=== PATIENT | male | born 1960 | race Caucasian/White ===

== ENCOUNTER 2016-06-09 20:09 | Emergency (ER) | payer MEDICAID, OTHER ==
[~2016-06-09] VITALS: Ht 175.3 cm; Wt 81.0 kg
[2016-06-09 20:17] VITALS: Ht 175.3 cm; Wt 81.0 kg
[2016-06-09 23:52] LABS: ADD UMIC YES; URINE BILIRUBIN (Dip) NEGATIVE (NEGATIVE); URINE BLOOD (Dip) 2+ (NEGATIVE); URINE COLOR LT. YELLOW (YELLOW); URINE GLUCOSE (Dip) >=1000 % (NEGATIVE); URINE KETONES (Dip) 3+ (NEGATIVE); URINE LEUKOCYTE ESTERASE (Dip) 1+ (NEGATIVE); URINE NITRITE (Dip) POSITIVE (NEGATIVE); URINE TOTAL PROTEIN (Dip) 1+ (NEGATIVE); URINE UROBILINOGEN (Dip) 0.2 E.U./dL (0.1-1.0)
--- NOTE | 2016-06-09 23:56 | RADRPT ---
PROCEDURE: Scrotal ultrasound CLINICAL INDICATION: Scrotal pain. TECHNIQUE: Scrotal ultrasound was performed with sagittal and transverse views. Calvo scale and co aditya imaging was performed. Images were reviewed on high resolution PACS monitors. COMPARISON: None available FINDINGS: The right testicle measures 4.1 x 2.1 x 2.8 cm . There is normal size and echogenicity and morpholog y of the right testicle with normal blood flow. The right epididymis is normal. No hydrocele is seen . There is no evidence for a varicocele.. The left testicle measures 4.2 x 2 x 2.7 cm. There is normal size and echogenicity and morphology of the left testicle with normal blood flow. The left epididymis is normal. No hydrocele is seen. Th ere is no evidence for a varicocele.. IMPRESSION: 1. Unremarkable scrotal ultrasound. RPTAT: HMVK .Fabrice Burrows MD, Date Time Electronically viewed and signed by .Fabrice Burrows MD, MD on 06/09/2016 23:56 .K/
[2016-06-10 00:03] LABS: BACTERIA,URINE MANY; SQUAMOUS EPITHELIAL CELL,UR OCCASIONAL; URINE RBCS >50 /HPF (0)
[2016-06-10] MEDS ORDERED: SOD CHLORIDE 0.9% 1,000 ML IV STA (00:53)
[2016-06-10 01:39] LABS: ALBUMIN 3.9 g/dl (3.3-4.9)
[2016-06-10 01:40] LABS: POTASSIUM 3.9 mmol/L (3.5-5.1)
[2016-06-10 01:42] LABS: ALBUMIN/GLOBULIN RATIO 1.11; CREATININE 0.62 mg/dl (0.61-1.24); TOTAL PROTEIN 7.4 g/dl (6.1-8.1)
[2016-06-10 01:43] LABS: CALCIUM 8.6 mg/dl (8.4-10.2)
[2016-06-10 02:09] LABS: BASOPHILS % 0.3 % (0.0-2.0); EOSINOPHILS % 0.1 % (0.0-7.0); HEMATOCRIT 40.4 % (42.0-52.0); HEMOGLOBIN 13.9 g/dl (14.0-18.0); LYMPHOCYTES # 1.2 10^3/ul (0.8-2.9); LYMPHOCYTES % 11.9 % (15.0-51.0); MEAN CORPUSCULAR HEMOGLOBIN 30.5 pg (29.0-33.0); MEAN CORPUSCULAR HGB CONC 34.4 g/dl (32.0-37.0); MEAN CORPUSCULAR VOLUME 88.6 fl (82.0-101.0); MEAN PLATELET VOLUME 7.5 fl (7.4-10.4); MONOCYTE # 0.7 10^3/ul (0.3-0.9); MONOCYTES % 6.5 % (0.0-11.0); NEUTROPHIL # 8.4 10^3/ul (1.6-7.5); NEUTROPHILS % 81.2 % (39.0-77.0); PLATELET COUNT 246 10^3/UL (140-440); RED BLOOD COUNT 4.56 10^6/ul (4.70-6.10); RED CELL DISTRIBUTION WIDTH 13.8 % (11.5-14.5); UNCORRECTED WBC 10.3 10^3/ul (4.8-10.8); WHITE BLOOD COUNT 10.3 10^3/ul (4.8-10.8)
[2016-06-10 02:11] LABS: CONDITION 1
[2016-06-10] MEDS ORDERED: CIPR500T4 PO (02:28)
[2016-06-10] MEDS ORDERED: IBUP400T22 PO (02:28)
--- NOTE | 2016-06-10 02:35 | ERD ---
ER Documentation Chief Complaint Date/Time DATE: 06/10/16 TIME: 02:30 Chief Complaint difficulty of urination w/ pain, x 1 week HPI 55-year-old male with a past history of diabetes presents the ED complaining of urgency, frequency, burning with urination as well as testicular pain that started 2 days ago. States that it feels like he is unable to urinate. Also reports that he feels dizzy. States that he has not taken his diabetic medication since 2 days ago. Denies any fever, chills, chest pain, shortness of breath, numbness or tingling, weakness. Reports that he takes metformin and insulin for his diabetes. ROS All systems reviewed and are negative except as per history of present illness. Medications Home Meds Active Scripts Ciprofloxacin Hcl* (Ciprofloxacin Hcl*) 500 Mg Tablet, 500 MG PO BID for 10 Days , TAB Prov:GINO WARE PA-C 06/10/16 Ibuprofen* (Motrin*) 400 Mg Tab, 400 MG PO Q6, #30 TAB Prov:GINO WARE PA-C 06/10/16 Allergies Allergies: Coded Allergies: No Known Allergy (Unverified , 06/09/16) PMhx/Soc History of Surgery: No Anesthesia Reaction: No Hx Neurological Disorder: No Hx Respiratory Disorders: No Hx Cardiac Disorders: No Hx Psychiatric Problems: No Hx Miscellaneous Medical Probl: Yes (DM) Hx Alcohol Use: No Hx Substance Use: No Hx Tobacco Use: No Physical Exam Vitals Vital Signs Date Time Temp Pulse Resp B/P Pulse Ox O2 Delivery O2 Flow Rate FiO2 06/10/16 02:50 98.8 89 16 135/76 100 Room Air 06/09/16 20:17 98.4 88 20 145/80 100 Physical Exam Const: Lza-dpt-ugdfdenve, well-nourished. In no acute distress. Head: Atraumatic, normocephalic Eyes: Normal Conjunctiva without injection. No purulent discharge. PERRLA. EOMI ENT: Normal external ear. Ear canal without erythema. Tympanic membrane pearly munoz without effusion or bulging. Nasal canal clear with normal turbinates. Moist oropharynx without tonsillar exudates. Non-erythematous pharynx. Uvula midline. No drooling. No trismus. Neck: No cervical midline tenderness. Full range of motion. No meningismus. No cervical lymphadenopathy. No JVD. Resp: Clear to auscultation bilaterally. No wheezing, rhonchi, rales, or crackles. No accessory muscle use. No retractions. Cardio: Regular rate and rhythm. No murmurs, rubs or gallops. Abd: Soft, non tender, non distended. Normal bowel sounds. No palpable masses. No rebound tenderness. No guarding. Negative McBurney's Point. Negative Peñaloza's Sign. : Slight tenderness to palpation of bilateral testicles. No purulent discharge noted. No hernias noted. No paraphimosis. No phimosis. Skin: Normal skin turgor. No petechiae or rashes Back: No midline tenderness. No CVA tenderness. Ext: No cyanosis, or edema. Distal pulses intact bilaterally. Neur: Awake and alert. Normal gait. Normal coordination. Cranial Nerves II- VII intact. Normal finger to nose. Muscle strength 5/5. Sensation intact. Psych: Normal Mood and Affect Result Diagram: 06/10/1611206/10/16112 Results 24 hrs Laboratory Tests Test 06/09/16 23:20 06/09/16 23:44 06/10/16 01:13 06/10/16 02:38 Urine Bacteria MANY Urine Bilirubin NEGATIVE Urine Clarity CLEAR Urine Color LT. YELLOW Urine Glucose >=1000% Urine Hemoglobin 2+ Urine Ketones 3+ Urine Leukocyte Esterase 1+ Urine Microscopic RBC >50/HPF Urine Microscopic WBC 5-10/HPF Urine Nitrite POSITIVE Urine Specific [place] 1.015 Urine Squamous Epithelial Cells OCCASIONAL Urine Total Protein 1+ Urine Urobilinogen 0.2 E.U./dL Urine pH 6.0 Bedside Glucose 320mg/dL 247mg/dL Alanine Aminotransferase (ALT/SGPT) 27IU/L Albumin 3.9g/dl Albumin/Globulin Ratio 1.11 Alkaline Phosphatase 97IU/L Anion Gap 23 Aspartate Amino Transf (AST/SGOT) 18IU/L Basophils # 0.010^3/ul Basophils % 0.3% Blood Urea Nitrogen 11mg/dl Calcium Level 8.6mg/dl Carbon Dioxide Level 23mmol/L Chloride Level 95mmol/L Creatinine 0.62mg/dl Direct Bilirubin 0.00mg/dl Eosinophils # 0.010^3/ul Eosinophils % 0.1% Globulin 3.50g/dl Glucose Level 282mg/dl Hematocrit 40.4% Hemoglobin 13.9g/dl Indirect Bilirubin 1.0mg/dl Lipase 10U/L Lymphocytes # 1.210^3/ul Lymphocytes % 11.9% Mean Corpuscular Hemoglobin 30.5pg Mean Corpuscular Hemoglobin Concent 34.4g/dl Mean Corpuscular Volume 88.6fl Mean Platelet Volume 7.5fl Monocytes # 0.710^3/ul Monocytes % 6.5% Neutrophils # 8.410^3/ul Neutrophils % 81.2% Nucleated Red Blood Cells # 0.010^3/ul Nucleated Red Blood Cells % 0.0/100WBC Platelet Count 88725^3/UL Potassium Level 3.9mmol/L Red Blood Count 4.5610^6/ul Red Cell Distribution Width 13.8% Sodium Level 137mmol/L Total Bilirubin 1.0mg/dl Total Protein 7.4g/dl White Blood Count 10.310^3/ul Current Medications Medications (Trade) Dose Ordered Sig/Marcelina Route PRN Reason Start Time Stop Time Status Last Admin Dose Admin Sodium Chloride (NS) 1,000 ml @ 1,000 mls/hr Q1H STAT IV 06/10/16 00:53 06/10/16 01:52 DC 06/10/16 01:11 Procedures/MDM 55-year-old male with no significant past medical history presents the ED complaining of dizziness, pain with urination, testicular pain, urgency, frequency, burning with urination. Patient is afebrile nontoxic appearing. Patient has normal vital signs. A urinalysis, her ultrasound was ordered to further evaluate patient. Urinalysis shows positive nitrite, 3+ ketones, 1+ leukocyte esterase, 1+ hematuria with white blood cells noted. Patient does likely have a urinary tract infection. Testicular ultrasound was negative for any testicular torsion, hydrocele, varicocele, epididymitis. Since patient does have 3+ ketones noted as well as an Accu-Chek of 320, a CBC, CMP, lipase, 1 L normal saline was ordered to further evaluate patient. Patient's accucheck improved after 1 L of normal saline. 282 to 247 blood glucose. CBC: No leukocytosis. No e/o of systemic infection. No e/o anemia. CMP: No e/o severe acidosis, alkalosis, renal failure, diabetic ketoacidosis, liver disease Lipase within normal limits. EKG reviewed and interpreted by Dr. Dyer Rate/Rhythm: [94 bpm, Normal Sinus Rhythm] No ectopy, no ST elevations, normal axis. QRS, ST, T-waves: [No changes consistent w/ acute ischemia] Impression: [No evidence of ischemia or arrhythmia] Low suspicion for acute myocardial infarction, pneumothorax, pneumonia, cardiac tamponade, pulmonary embolism, AAA, aortic dissection, Boerhaave's syndrome, cardiac dysrhythmias,meningitis, intracranial bleed, seizure, stroke, TIA or other emergent conditions. Low suspicion for gastritis, GERD, peptic ulcer disease, cholecystitis, choledocholithiasis, cholangitis, pancreatitis, appendicitis, DKA, HHS, bowel obstruction, ileus, volvulus, nephrolithiasis, pyelonephritis, hepatitis, perforated viscus, diverticulitis, abdominal hernia, acute abdomen, mesenteric ischemia or other emergent conditions. This case was discussed with my supervising physician Dr. Dyer who agreed with the management and discharge plan. Discharge medications: Ciprofloxacin, Ibuprofen Follow up with primary care physician in 1-2 days for maintenance of diabetes and urologist. Instructed patient to return to the ED sooner for any worsening symptoms. Patient's questions were answered. Patient understood and agreed with discharge plan. Patient discharged stable. Departure Diagnosis: Primary Impression: Urinary tract infection Urinary tract infection type: site unspecified Hematuria presence: without hematuria Qualified Code: N39.0 - Urinary tract infection without hematuria, site unspecified Additional Impression: Hyperglycemia Condition: Stable Patient Instructions: Hyperglycemia (High Blood Sugar), Urinary Tract Infections in Men Referrals: [facility] YOU HAVE RECEIVED A MEDICAL SCREENING EXAM AND THE RESULTS INDICATE THAT YOU DO NOT HAVE A CONDITION THAT REQUIRES URGENT TREATMENT IN THE EMERGENCY DEPARTMENT. FURTHER EVALUATION AND TREATMENT OF YOUR CONDITION CAN WAIT UNTIL YOU ARE SEEN IN YOUR DOCTORS OFFICE WITHIN THE NEXT 1-2 DAYS. IT IS YOUR RESPONSIBILITY TO MAKE AN APPOINTMENT FOR FOLOW-UP CARE. IF YOU HAVE A PRIMARY DOCTOR --you should call your primary doctor and schedule an appointment IF YOU DO NOT HAVE A PRIMARY DOCTOR YOU CAN CALL OUR PHYSICIAN REFERRAL HOTLINE AT IF YOU CAN NOT AFFORD TO SEE A PHYSICIAN YOU CAN CHOSE FROM THE FOLLOWING [facility] [address] [facility]. [facility] [address] [facility] [facility] [address] [facility] [address] [facility] [address] [facility]. [facility]. [address] [facility]. [facility] YOU HAVE RECEIVED A MEDICAL SCREENING EXAM AND THE RESULTS INDICATE THAT YOU DO NOT HAVE A CONDITION THAT REQUIRES URGENT TREATMENT IN THE EMERGENCY DEPARTMENT. FURTHER EVALUATION AND TREATMENT OF YOUR CONDITION CAN WAIT UNTIL YOU ARE SEEN IN YOUR DOCTORS OFFICE WITHIN THE NEXT 1-2 DAYS. IT IS YOUR RESPONSIBILITY TO MAKE AN APPOINTMENT FOR FOLOW-UP CARE. IF YOU HAVE A PRIMARY DOCTOR --you should call your primary doctor and schedule and appointment IF YOU DO NOT HAVE A PRIMARY DOCTOR YOU CAN CALL OUR PHYSICIAN REFERRAL HOTLINE AT . IF YOU CAN NOT AFFORD TO SEE A PHYSICIAN YOU CAN CHOSE FROM THE FOLLOWING [facility] INSTITUTIONS: [facility] [address] [place] [address] [facility] [address] [place] [address] [facility] [address] [place] [address] [facility] Additional Instructions: FOLLOW UP WITH YOUR PRIMARY CARE PHYSICIAN TOMORROW. Return to this facility if you are not improving as expected. GINO WARE PA-C Jun 10, 2016 02:35
[2016-06-10 02:50] VITALS: BP 135/76; PULSE 89; RESP 16; TEMP 98.8
== END 2016-06-10 02:52 | disposition home or self-care (01) ==
LOC: FTE 20:09
DX: N39.0 Urinary tract infection, site not specified (principal); E11.65 Type 2 diabetes mellitus with hyperglycemia; R42 Dizziness and giddiness; Z79.84 Long term (current) use of oral hypoglycemic drugs; Z79.4 Long term (current) use of insulin
CPT/HCPCS: 36415; 76870; 80053; 81001; 82962; 83690; 85025; 87086; 93005; J7030; Z7502; 81003

== ENCOUNTER 2017-03-17 12:27 | Emergency (ER) | payer MEDICAID, OTHER ==
[~2017-03-17] VITALS: Ht 170.2 cm; Wt 73.5 kg
[~2017-03-17 12:27] MED LIST: CIPR500T4 PO; IBUP400T22 PO
[2017-03-17 12:45] VITALS: Ht 170.2 cm; Wt 73.5 kg
[2017-03-17] MEDS ORDERED: morphine 2 MG INJ IV STA (14:09)
[2017-03-17] MEDS ORDERED: ONDANSETRON 4 MG INJ IV STA (14:09)
[2017-03-17 14:35] LABS: BASOPHILS % 0.4 % (0.0-2.0); EOSINOPHILS % 0.7 % (0.0-7.0); HEMOGLOBIN 14.7 g/dl (14.0-18.0); LYMPHOCYTES # 2.1 10^3/ul (0.8-2.9); LYMPHOCYTES % 38.8 % (15.0-51.0); MEAN CORPUSCULAR HEMOGLOBIN 30.5 pg (29.0-33.0); MEAN CORPUSCULAR VOLUME 87.1 fl (82.0-101.0); MEAN PLATELET VOLUME 9.4 fl (7.4-10.4); MONOCYTE # 0.3 10^3/ul (0.3-0.9); MONOCYTES % 5.7 % (0.0-11.0); NEUTROPHILS % 54.2 % (39.0-77.0); PLATELET COUNT 304 10^3/UL (140-415); RED BLOOD COUNT 4.82 10^6/ul (4.70-6.10); RED CELL DISTRIBUTION WIDTH 12.7 % (11.5-14.5); WHITE BLOOD COUNT 5.5 10^3/ul (4.8-10.8)
[2017-03-17 14:41] LABS: ADD UMIC NO; UR ASCORBIC ACID NEGATIVE (NEGATIVE); UR BILIRUBIN (Dip) NEGATIVE (NEGATIVE); UR BLOOD (Dip) NEGATIVE (NEGATIVE); UR CLARITY CLEAR (CLEAR); UR COLOR YELLOW (YELLOW); UR GLUCOSE (Dip) 3+ mg/dL (NEGATIVE); UR KETONES (Dip) NEGATIVE (NEGATIVE); UR LEUKOCYTE ESTERASE (Dip) NEGATIVE Leu/ul (NEGATIVE); UR NITRITE (Dip) NEGATIVE (NEGATIVE); UR SPECIFIC GRAVITY (Dip) 1.038 (1.003-1.030); UR TOTAL PROTEIN (Dip) NEGATIVE (NEGATIVE); UR UROBILINOGEN (Dip) NEGATIVE (NEGATIVE)
--- NOTE | 2017-03-17 14:50 | RADRPT ---
PROCEDURE: XR Chest. CLINICAL INDICATION: Pain . TECHNIQUE: Single frontal chest x-ray. COMPARISON: None. FINDINGS: The lungs are clear of acute infiltrates, edema, effusions, or masses.. The cardiomediastinal silho uette is unremarkable. The osseous structures are intact. IMPRESSION: No acute cardiopulmonary disease. RPTAT: WW .Mendoza Gonsales MD, MD Date Time Electronically viewed and signed by .Mendoza Gonsales MD, on 03/17/2017 14:50 .L/
[2017-03-17 15:00] LABS: ALBUMIN 4.2 g/dl (3.3-4.9); ALBUMIN/GLOBULIN RATIO 1.2; BILIRUBIN,INDIRECT 0.4 mg/dl (0-1.1); BILIRUBIN,TOTAL 0.4 mg/dl (0.2-1.3); CALCIUM 9.7 mg/dl (8.4-10.2); CREATININE 0.6 mg/dl (0.61-1.24); POTASSIUM 4.6 mmol/L (3.5-5.1); TOTAL PROTEIN 7.7 g/dl (6.1-8.1)
--- NOTE | 2017-03-17 15:28 | RADRPT ---
PROCEDURE: US Abdomen. CLINICAL INDICATION: abdominal pain TECHNIQUE: Multiple real-time images were acquired of the patient's right upper quadrant abdomen a nd retroperitoneum utilizing a high resolution transducer. COMPARISON: None FINDINGS: The liver demonstrates normal echogenicity. The liver is normal in size. There are multiple hyperec hoic lesions in the liver measuring up to 2.5 cm. The liver measures 17.7 cm in length. The portal v ein is patent with normal direction of flow. No intrahepatic biliary dilatation is seen. The gallbladder is moderately distended. There is a 6 mm polyp within the gallbladder. No gallstones are identified within the gallbladder. There is no pericholecystic fluid or gallbladder wall thick ening. The common bile duct measures 4 mm in maximal dimension. The pancreas is not seen due to overlying bowel gas. No free fluid is identified. The right kidney is normal in size, and demonstrate normal echogenicity and cortical thickness. The right kidney measures 11.2 cm in long dimension. There is no evidence of hydronephrosis. There are no kidney stones. RPTAT: AA IMPRESSION: Multiple echogenic masses in the liver, suspicious for multiple hemangiomas. However other neoplasm is not excluded and further evaluation with a triple phase liver CT is recommended. Moderately distended gallbladder with no evidence of gallstones. Small polyp within the gallbladder. A call report was made and the findings discussed with Angelica Ross Pa-C (PEDRO LUIS) at 03/17/2017 3:26:01 PM . .Kobe Guevara MD, MD Date Time Electronically viewed and signed by .Kobe Guevara MD, MD on 03/17/2017 15:27 .S/
[2017-03-17] MEDS ORDERED: IODIXANOL LOCM 100 ML BTL ONE (15:56)
[2017-03-17] MEDS ORDERED: SOD CHLORIDE 0.9% 100 ML ONE (15:56)
--- NOTE | 2017-03-17 16:32 | RADRPT ---
PROCEDURE: CT Abdomen and Pelvis with and without contrast with multiphase liver imaging protocol. CLINICAL INDICATION: Liver lesions on ultrasound. TECHNIQUE: Four phase CT scan of the abdomen and pelvis with and without contrast was performed on a multidetector high-resolution CT scanner. Precontrast, arterial phase, portal venous phase, and equilibrium phase imaging was performed. The patient was scanned both before and following the unco mplicated intravenous administration of 100 cc of Visipaque 320 and high flow rate injection of 5 cc per second. Coronal and sagittal reformatted images were obtained from the axial source images. Im ages were reviewed on a high-resolution PACS workstation. The total exam CTDI equals 8.03, 7.88, 10. 81, and 7.04 mGy and the total exam DLP equals 1250.07 mGy-cm. One or more of the following dose reduction techniques were used: Automated exposure control. Adjustment of the mA and/or kV according to patient size. Use of iterative reconstruction technique. COMPARISON: None. FINDINGS: CT liver: The liver is well visualized and well evaluated. There is approximately 2 cm lobulated lesion at the dome of the liver which demonstrates incomplete peripheral contrast enhancement on arterial phase i mages with progressive centripedal contrast enhancement in keeping with a hemangioma. There is 2.7 x 1.9 cm lobulated lesion in the medial left hepatic lobe which demonstrate minimal contrast enhancem ent on venous phase images with increased peripheral enhancement on delayed phase images most consis tent with a hemangioma. There is approximately 1.5 cm subcapsular lesion in right posterior hepatic lobe which demonstrate slightly increased contrast enhancement on the delayed phase images most cons istent with a hemangioma. CT abdomen: The lung bases are clear. The heart size is normal, without pericardial thickening or effusion. The spleen is normal in size and homogeneous in density. The stomach is partially collapsed, but is gr ossly unremarkable. The pancreas as visualized is normal. The gallbladder and biliary tree are unr emarkable and there is no evidence for biliary dilatation. The adrenal glands are symmetric and nor mal. The kidneys are symmetrically unremarkable as well. No renal calculus or obstructive uropathy or mass lesion is seen. The aorta is of normal caliber. Scattered aortic vascular calcifications are present. There is no retroperitoneal lymphadenopathy. The alejandro hepatis region is clear. The bowel and mesentery, as vi sualized, are equally unremarkable. CT pelvis: The small bowel loops situated within the pelvis are unremarkable. The pelvic organs are normal. T he pelvic sidewalls and inguinal regions are clear. The sigmoid colon and rectum are unremarkable. No mass, lymphadenopathy, or free fluid is seen. No acute inflammation is seen. The surrounding os seous structures are remarkable for degenerative spondylosis of the spine. No osteolytic or osteobl astic lesion is detected. IMPRESSION: 1. Total of 3 focal liver lesions with imaging features most consistent with benign hemangiomas. 2. No mass, lymphadenopathy or acute inflammatory changes. RPTAT: BB .Rayne Tello MD, MD Date Time Electronically viewed and signed by .Rayne Tello MD, on 03/17/2017 16:31 .O/
[2017-03-17] MEDS ORDERED: TRAM50TA2 PO (16:43)
--- NOTE | 2017-03-17 16:52 | ERD ---
ER Documentation Chief Complaint Chief Complaint RUQ PAIN HPI 56-year-old male presents with right upper quadrant abdominal pain for approximately a week. It is described as achy, moderate, nonradiating. He denies any history associated fevers or chills, nausea, vomiting. He denies chest pain or shortness of breath. ROS All systems reviewed and are negative except as per history of present illness. Medications Home Meds Active Scripts Tramadol HCl (Tramadol HCl) 50 Mg Tablet, 50 MG PO Q4 Y for PAIN, #15 TAB Prov:KYLAH ROSS PA-C 03/17/17 Ciprofloxacin Hcl* (Ciprofloxacin Hcl*) 500 Mg Tablet, 500 MG PO BID for 10 Days , TAB Prov:GINO WARE PA-C 06/10/16 Ibuprofen* (Motrin*) 400 Mg Tab, 400 MG PO Q6, #30 TAB Prov:GINO WARE PA-C 06/10/16 Allergies Allergies: Coded Allergies: No Known Allergy (Unverified , 03/17/17) PMhx/Soc Medical and Surgical Hx: pt denies Surgical Hx History of Surgery: No Anesthesia Reaction: No Hx Neurological Disorder: No Hx Respiratory Disorders: No Hx Cardiac Disorders: No Hx Psychiatric Problems: No Hx Miscellaneous Medical Probl: Yes (DM) Hx Alcohol Use: No Hx Substance Use: No Hx Tobacco Use: No Smoking Status: Never smoker Physical Exam Vitals Vital Signs Date Time Temp Pulse Resp B/P Pulse Ox O2 Delivery O2 Flow Rate FiO2 03/17/17 12:45 98.0 80 18 134/71 98 Physical Exam General: Well-developed, well-nourished. The patient appears in no acute distress. HEENT: Head is normocephalic, atraumatic. Icterus. Neck: Supple. Nontender. Lungs: Clear to auscultation. Normal air movement. Heart: Regular rate and rhythm. S1 and S2 are normal. No murmurs, gallops, or rubs. Abdomen: Soft, has mild tenderness in the right upper quadrant, without any hepatosplenomegaly, no masses, negative Peñaloza sign., nondistended. Bowel sounds are normoactive. Extremities: No clubbing or cyanosis. Normal pulses. Moving extremities x 4. No weakness. Neurologic: Alert and oriented 3. No focal deficits. Skin: Normal turgor. No rash or lesions. Result Diagram: 03/17/17 1425 03/17/17 1425 Results 24 hrs Laboratory Tests Test 03/17/17 14:25 White Blood Count 5.510^3/ul Red Blood Count 4.8210^6/ul Hemoglobin 14.7g/dl Hematocrit 42.0% Mean Corpuscular Volume 87.1fl Mean Corpuscular Hemoglobin 30.5pg Mean Corpuscular Hemoglobin Concent 35.0g/dl Red Cell Distribution Width 12.7% Platelet Count 34942^3/UL Mean Platelet Volume 9.4fl Neutrophils % 54.2% Lymphocytes % 38.8% Monocytes % 5.7% Eosinophils % 0.7% Basophils % 0.4% Nucleated Red Blood Cells % 0.0/100WBC Neutrophils # 3.010^3/ul Lymphocytes # 2.110^3/ul Monocytes # 0.310^3/ul Eosinophils # 0.010^3/ul Basophils # 0.010^3/ul Nucleated Red Blood Cells # 0.010^3/ul Urine Color YELLOW Urine Clarity CLEAR Urine pH 5.0 Urine Specific [place] 1.038 Urine Ketones NEGATIVEmg/dL Urine Nitrite NEGATIVEmg/dL Urine Bilirubin NEGATIVEmg/dL Urine Urobilinogen NEGATIVEmg/dL Urine Leukocyte Esterase NEGATIVELeu/ul Urine Hemoglobin NEGATIVEmg/dL Urine Glucose 3+mg/dL Urine Total Protein NEGATIVEmg/dl Sodium Level 140mmol/L Potassium Level 4.6mmol/L Chloride Level 101mmol/L Carbon Dioxide Level 30mmol/L Anion Gap 14 Blood Urea Nitrogen 16mg/dl Creatinine 0.60mg/dl Glucose Level 311mg/dl Calcium Level 9.7mg/dl Total Bilirubin 0.4mg/dl Direct Bilirubin 0.00mg/dl Indirect Bilirubin 0.4mg/dl Aspartate Amino Transf (AST/SGOT) 16IU/L Alanine Aminotransferase (ALT/SGPT) 29IU/L Alkaline Phosphatase 73IU/L Total Protein 7.7g/dl Albumin 4.2g/dl Globulin 3.50g/dl Albumin/Globulin Ratio 1.20 Lipase 31U/L Current Medications Medications (Trade) Dose Ordered Sig/Marcelina Route PRN Reason Start Time Stop Time Status Last Admin Dose Admin Morphine Sulfate (morphine) 2 mg ONCE STAT IV 03/17/17 14:09 03/17/17 14:10 DC 03/17/17 14:37 Ondansetron HCl (Zofran Inj) 4 mg ONCE STAT IV 03/17/17 14:09 03/17/17 14:10 DC 03/17/17 14:37 IV Flush 10 ml 10 ml STK-MED ONCE .ROUTE 03/17/17 15:56 03/17/17 15:57 DC Sodium Chloride (NS) 100 ml @ ud STK-MED ONCE .ROUTE 03/17/17 15:56 03/17/17 15:57 DC Iodixanol (Visipaque Locm) 100 ml STK-MED ONCE .ROUTE 03/17/17 15:56 03/17/17 15:57 DC DIAGNOSTIC IMAGING REPORT Patient: IRMA BIRD : 1960 Age: 56 Sex: M MR #: [id number] DOS: 03/17/17 1409 Ordering MD: KYLAH ROSS PA-C Location: [facility] Room/Bed: PROCEDURE: US Abdomen. CLINICAL INDICATION: abdominal pain TECHNIQUE: Multiple real-time images were acquired of the patient's right upper quadrant abdomen and retroperitoneum utilizing a high resolution transducer. COMPARISON: None FINDINGS: The liver demonstrates normal echogenicity. The liver is normal in size. There are multiple hyperechoic lesions in the liver measuring up to 2.5 cm. The liver measures 17.7 cm in length. The portal vein is patent with normal direction of flow. No intrahepatic biliary dilatation is seen. The gallbladder is moderately distended. There is a 6 mm polyp within the gallbladder. No gallstones are identified within the gallbladder. There is no pericholecystic fluid or gallbladder wall thickening. The common bile duct measures 4 mm in maximal dimension. The pancreas is not seen due to overlying bowel gas. No free fluid is identified. The right kidney is normal in size, and demonstrate normal echogenicity and cortical thickness. The right kidney measures 11.2 cm in long dimension. There is no evidence of hydronephrosis. There are no kidney stones. RPTAT: AA IMPRESSION: Multiple echogenic masses in the liver, suspicious for multiple hemangiomas. However other neoplasm is not excluded and further evaluation with a triple phase liver CT is recommended. Moderately distended gallbladder with no evidence of gallstones. Small polyp within the gallbladder. A call report was made and the findings discussed with Kylah Ross Pa-C (PEDRO LUIS) at 03/17/2017 3:26:01 PM. .Kobe Guevara MD, Date Time Electronically viewed and signed by .Kobe Guevara MD, MD on 03/17/2017 15: 27 .S/ CC: KYLAH ROSS PA-C DIAGNOSTIC IMAGING REPORT Patient: IRMA BIRD : 1960 Age: 56 Sex: M MR #: [id number] DOS: 03/17/17 1409 Ordering MD: KYLAH ROSS PA-C Location: [facility] Room/Bed: PROCEDURE: XR Chest. CLINICAL INDICATION: Pain . TECHNIQUE: Single frontal chest x-ray. COMPARISON: None. FINDINGS: The lungs are clear of acute infiltrates, edema, effusions, or masses.. The cardiomediastinal silhouette is unremarkable. The osseous structures are intact. IMPRESSION: No acute cardiopulmonary disease. RPTAT: WW .Mendoza Gonsales MD, MD Date Time Electronically viewed and signed by .Mendoza Gonsales MD, MD on 03/17/2017 14:50 .L/ CC: KYLAH ROSS PA-C DIAGNOSTIC IMAGING REPORT Patient: IRMA BIRD : 1960 Age: 56 Sex: M MR #: [id number] DOS: 03/17/17 1531 Ordering MD: KYLAH ROSS PA-C Location: [facility] Room/Bed: PROCEDURE: CT Abdomen and Pelvis with and without contrast with multiphase liver imaging protocol. CLINICAL INDICATION: Liver lesions on ultrasound. TECHNIQUE: Four phase CT scan of the abdomen and pelvis with and without contrast was performed on a multidetector high-resolution CT scanner. Precontrast, arterial phase, portal venous phase, and equilibrium phase imaging was performed. The patient was scanned both before and following the uncomplicated intravenous administration of 100 cc of Visipaque 320 and high flow rate injection of 5 cc per second. Coronal and sagittal reformatted images were obtained from the axial source images. Images were reviewed on a high-resolution PACS workstation. The total exam CTDI equals 8.03, 7.88, 10.81, and 7.04 mGy and the total exam DLP equals 1250.07 mGy-cm. One or more of the following dose reduction techniques were used: Automated exposure control. Adjustment of the mA and/or kV according to patient size. Use of iterative reconstruction technique. COMPARISON: None. FINDINGS: CT liver: The liver is well visualized and well evaluated. There is approximately 2 cm lobulated lesion at the dome of the liver which demonstrates incomplete peripheral contrast enhancement on arterial phase images with progressive centripedal contrast enhancement in keeping with a hemangioma. There is 2.7 x 1.9 cm lobulated lesion in the medial left hepatic lobe which demonstrate minimal contrast enhancement on venous phase images with increased peripheral enhancement on delayed phase images most consistent with a hemangioma. There is approximately 1.5 cm subcapsular lesion in right posterior hepatic lobe which demonstrate slightly increased contrast enhancement on the delayed phase images most consistent with a hemangioma. CT abdomen: The lung bases are clear. The heart size is normal, without pericardial thickening or effusion. The spleen is normal in size and homogeneous in density. The stomach is partially collapsed, but is grossly unremarkable. The pancreas as visualized is normal. The gallbladder and biliary tree are unremarkable and there is no evidence for biliary dilatation. The adrenal glands are symmetric and normal. The kidneys are symmetrically unremarkable as well. No renal calculus or obstructive uropathy or mass lesion is seen. The aorta is of normal caliber. Scattered aortic vascular calcifications are present. There is no retroperitoneal lymphadenopathy. The alejandro hepatis region is clear. The bowel and mesentery, as visualized, are equally unremarkable. CT pelvis: The small bowel loops situated within the pelvis are unremarkable. The pelvic organs are normal. The pelvic sidewalls and inguinal regions are clear. The sigmoid colon and rectum are unremarkable. No mass, lymphadenopathy, or free fluid is seen. No acute inflammation is seen. The surrounding osseous structures are remarkable for degenerative spondylosis of the spine. No osteolytic or osteoblastic lesion is detected. IMPRESSION: 1. Total of 3 focal liver lesions with imaging features most consistent with benign hemangiomas. 2. No mass, lymphadenopathy or acute inflammatory changes. RPTAT: BB .Rayne Tello MD, Date Time Electronically viewed and signed by .Rayne Tello MD, on 03/17/2017 16:31 .O/ CC: KYLAH ROSS PA-C Procedures/MDM -year-old male presents with right upper quadrant abdominal pain, there is evidence of a gallbladder polyp but there was some lesions seen in the gallbladder on ultrasound and therefore liver protocol CT was obtained. The patient has evidence of hemangiomas on the CT of the liver. Masses seen, no evidence of cholecystitis, choledocholithiasis. All labs are unremarkable. I have spoken with the patient regarding his results, he is to follow-up with the senior logistics manager outpatient, he is to get a referral from his PCP. Departure Diagnosis: Primary Impression: Abdominal pain Additional Impression: Hemangioma of liver Condition: Good Patient Instructions: Abdominal Pain Referrals: [facility] YOU HAVE RECEIVED A MEDICAL SCREENING EXAM AND THE RESULTS INDICATE THAT YOU DO NOT HAVE A CONDITION THAT REQUIRES URGENT TREATMENT IN THE EMERGENCY DEPARTMENT. FURTHER EVALUATION AND TREATMENT OF YOUR CONDITION CAN WAIT UNTIL YOU ARE SEEN IN YOUR DOCTORS OFFICE WITHIN THE NEXT 1-2 DAYS. IT IS YOUR RESPONSIBILITY TO MAKE AN APPOINTMENT FOR FOLOW-UP CARE. IF YOU HAVE A PRIMARY DOCTOR --you should call your primary doctor and schedule an appointment IF YOU DO NOT HAVE A PRIMARY DOCTOR YOU CAN CALL OUR PHYSICIAN REFERRAL HOTLINE AT IF YOU CAN NOT AFFORD TO SEE A PHYSICIAN YOU CAN CHOSE FROM THE FOLLOWING [facility] [address] [facility] [address] [facility] [address] [facility] [address] [facility] [address] [facility]. [facility] [address] [facility]. [facility] YOU HAVE RECEIVED A MEDICAL SCREENING EXAM AND THE RESULTS INDICATE THAT YOU DO NOT HAVE A CONDITION THAT REQUIRES URGENT TREATMENT IN THE EMERGENCY DEPARTMENT. FURTHER EVALUATION AND TREATMENT OF YOUR CONDITION CAN WAIT UNTIL YOU ARE SEEN IN YOUR DOCTORS OFFICE WITHIN THE NEXT 1-2 DAYS. IT IS YOUR RESPONSIBILITY TO MAKE AN APPOINTMENT FOR FOLOW-UP CARE. IF YOU HAVE A PRIMARY DOCTOR --you should call your primary doctor and schedule and appointment IF YOU DO NOT HAVE A PRIMARY DOCTOR YOU CAN CALL OUR PHYSICIAN REFERRAL HOTLINE AT . IF YOU CAN NOT AFFORD TO SEE A PHYSICIAN YOU CAN CHOSE FROM THE FOLLOWING [facility] INSTITUTIONS: [facility] [address] [place] [address] [facility] [address] [place] [address] [facility] [address] [place] [address] [facility] KYLAH ROSS PA-C Mar 17, 2017 16:52
[2017-03-17 17:01] VITALS: BP 134/71; RESP 18; TEMP 98
== END 2017-03-17 17:02 | disposition home or self-care (01) ==
LOC: FTE 12:27
DX: R10.11 Right upper quadrant pain (principal); D18.03 Hemangioma of intra-abdominal structures; E11.9 Type 2 diabetes mellitus without complications
CPT/HCPCS: 36415; 71010; 74178; 76705; 80053; 81003; 83690; 85025; 96374; 96375; J2270; J2405; Q9967; Z7502; Z7610

== ENCOUNTER 2017-05-13 16:48 | Emergency (ER) | payer MEDICAID ==
[~2017-05-13] VITALS: Ht 157.5 cm; Wt 78.0 kg
[~2017-05-13 16:48] MED LIST changes: +TRAM50TA2 PO
[2017-05-13 16:53] VITALS: Ht 157.5 cm; Wt 78.0 kg
--- NOTE | 2017-05-13 19:52 | ERD ---
ER Documentation Chief Complaint Chief Complaint Complains of roight ankle pain today ROS All systems reviewed and are negative except as per history of present illness. Medications Home Meds Reported Medications Metformin Hcl* (Metformin Hcl*) 1,000 Mg Tablet, 1000 MG PO WITH BREAKFAST DINNE , #60 TAB 05/13/17 Discontinued Scripts Tramadol HCl (Tramadol HCl) 50 Mg Tablet, 50 MG PO Q4 Y for PAIN, #15 TAB Prov:KYLAH HAHN PA-C 03/17/17 Ciprofloxacin Hcl* (Ciprofloxacin Hcl*) 500 Mg Tablet, 500 MG PO BID for 10 Days , TAB Prov:GINO WARE PA-C 06/10/16 Ibuprofen* (Motrin*) 400 Mg Tab, 400 MG PO Q6, #30 TAB Prov:GINO WARE PA-C 06/10/16 Allergies Allergies: Coded Allergies: No Known Allergy (Unverified , 05/13/17) PMhx/Soc History of Surgery: No Anesthesia Reaction: No Hx Neurological Disorder: No Hx Respiratory Disorders: No Hx Cardiac Disorders: No Hx Psychiatric Problems: No Hx Miscellaneous Medical Probl: Yes (DM) Hx Alcohol Use: No Hx Substance Use: No Hx Tobacco Use: No Smoking Status: Never smoker Physical Exam Vitals Vital Signs Date Time Temp Pulse Resp B/P Pulse Ox O2 Delivery O2 Flow Rate FiO2 05/13/17 16:53 98.1 89 20 139/81 97 Results 24 hrs Current Medications Medications (Trade) Dose Ordered Sig/Marcelina Route PRN Reason Start Time Stop Time Status Last Admin Dose Admin Ketamine HCl (Ketalar) 78 mg ONCE ONCE IV 05/13/17 23:00 05/13/17 23:01 DC Propofol (Diprivan) 80 mg ONCE ONCE IV 05/13/17 23:00 05/13/17 23:01 DC JOLYNN SANCHEZ PA-C May 13, 2017 19:52
--- NOTE | 2017-05-13 21:17 | RADRPT ---
PROCEDURE: XR Right Ankle. CLINICAL INDICATION: Injury. Pain. TECHNIQUE: Three views of the right ankle were performed. COMPARISON: None. FINDINGS: There is lateral malleolar subcutaneous soft tissue swelling. There is a oblique fracture of the di stal fibular metadiaphysis with slight lateral displacement of the distal fracture fragment. There i s a medially displaced avulsion fracture of the inferior aspect of the medial malleolus. There is la teral subluxation of the talus the remainder of the foot relative to the proximal tibia and fibula. There is disruption of the ankle mortise. Bone mineralization is within normal limits. Joint relatio nships are otherwise maintained. There is small posterior and plantar calcaneal bone spurs. IMPRESSION: Lateral malleolar subcutaneous soft tissue swelling with laterally displaced and bimalleolar fractur es. There is disruption of the ankle mortise. RPTAT: HMVK .Fabrice Burrows MD, Date Time Electronically viewed and signed by .Fabrice Burrows MD, on 05/13/2017 21:17 .K/
[2017-05-13] MEDS ORDERED: PROPOFOL 200 MG INJ IV ONE (23:00)
[2017-05-13] MEDS ORDERED: KETAMINE 500 MG INJ IV ONE (23:00)
[2017-05-13] MEDS ORDERED: METF1000 PO (23:01)
[2017-05-13] MEDS ORDERED: SOD CHLORIDE 0.9% 1,000 ML IV STA (23:10)
[2017-05-13] MEDS ORDERED: ONDANSETRON 4 MG INJ IV STA (23:10)
[2017-05-13 23:12] VITALS: TEMP 98.6
--- NOTE | 2017-05-14 00:43 | RADRPT ---
PROCEDURE: XR Ankle. CLINICAL INDICATION: post reduction TECHNIQUE: AP and lateral views of the right ankle were performed. COMPARISON: None. FINDINGS: There is again identified a oblique fracture of the right distal fibula, slightly above the level of the ankle joint. The distal fracture portion is laterally displaced up to 3 mm, improved. There is a minimally distracted fracture of the medial malleolus, and a tiny chip fragment from the tip of th e medial malleolus. Tibiotalar alignment is improved from prior study. There is peripheral arterial calcification. IMPRESSION: 1. Distal fibula and medial malleolus fractures again identified, with improved tibiotalar alignmen t compared to prior study. RPTAT: HBST .Brandyn Ervin MD, MD Date Time Electronically viewed and signed by .Brandyn Ervin MD, on 05/14/2017 00:42 .T/
[2017-05-14] MEDS ORDERED: NAPR-688 PO (00:47)
[2017-05-14] MEDS ORDERED: HYDR-906 PO (00:47)
[2017-05-14] MEDS ORDERED: SULF1TAB31 PO (00:47)
[2017-05-14] MEDS ORDERED: CEPH-443 PO (00:47)
[2017-05-14] MEDS ORDERED: DIPHTH/TET/ACEL PERTUSS (ADULT) 0.5 ML VIAL IM* ONE (01:00)
[2017-05-14] MEDS ORDERED: morphine 4 MG/ML VIAL IV STA (01:28)
[2017-05-14] MEDS ORDERED: KETOROLAC 30 MG INJ IV STA (01:29)
[2017-05-14] MEDS ORDERED: OXYCODONE/ACETAMINOPHEN (10/325) TAB PO ONE (01:30)
[2017-05-14 01:53] VITALS: BP 154/89; PULSE 66; RESP 14
--- NOTE | 2017-05-14 02:25 | ERD ---
ER Documentation Chief Complaint Chief Complaint Complains of roight ankle pain today HPI This 56-year-old male suffering from mechanical fall in which he suffered impact to his right ankle. Immediate pain at the site and has had swelling over the last few hours. Also has an abrasion on the side of the leg. His family is worried because he is diabetic and I do not want to get infected. He had no chest pain, shortness of breath, lightheadedness prior to the fall in which he tripped. He has no other injuries or pain at any other site. He did not hit his head or lose consciousness. ROS All systems reviewed and are negative except as per history of present illness. Medications Home Meds Active Scripts Cephalexin* (Keflex*) 500 Mg Capsule, 500 MG PO TID for 7 Days, CAP Prov:OSEITARYNRASHMI DO 05/14/17 Sulfamethoxazole/Trimethoprim* (Bactrim Ds* Tablet) 1 Each Tablet, 1 TAB PO BID , #20 TAB Prov:OSEIRASHMI DO 05/14/17 Naproxen* (Naproxen*) 500 Mg Tablet, 500 MG PO BID Y for PAIN, #14 TAB Prov:OSEIRASHMI DO 05/14/17 Hydrocodone/Acetaminophen ([place] 5-325 Tablet) 1 Each Tablet, 1 EACH PO Q6, #20 TAB Prov:OSEIRASHMI DO 05/14/17 Reported Medications Metformin Hcl* (Metformin Hcl*) 1,000 Mg Tablet, 1000 MG PO WITH BREAKFAST DINNE , #60 TAB 05/13/17 Discontinued Scripts Tramadol HCl (Tramadol HCl) 50 Mg Tablet, 50 MG PO Q4 Y for PAIN, #15 TAB Prov:KYLAH HAHN PA-C 03/17/17 Ciprofloxacin Hcl* (Ciprofloxacin Hcl*) 500 Mg Tablet, 500 MG PO BID for 10 Days , TAB Prov:GINO WARE PA-C 06/10/16 Ibuprofen* (Motrin*) 400 Mg Tab, 400 MG PO Q6, #30 TAB Prov:GINO WARE PA-C 06/10/16 Allergies Allergies: Coded Allergies: No Known Allergy (Unverified , 05/13/17) PMhx/Soc Medical and Surgical Hx: pt denies Surgical Hx History of Surgery: No Anesthesia Reaction: No Hx Neurological Disorder: No Hx Respiratory Disorders: No Hx Cardiac Disorders: No Hx Psychiatric Problems: No Hx Miscellaneous Medical Probl: Yes (DM) Hx Alcohol Use: No Hx Substance Use: No Hx Tobacco Use: No Smoking Status: Never smoker Physical Exam Vitals Vital Signs Date Time Temp Pulse Resp B/P Pulse Ox O2 Delivery O2 Flow Rate FiO2 05/14/17 01:53 66 14 154/89 98 Room Air 05/14/17 00:20 100 4.0 05/13/17 23:12 98.6 77 13 146/85 99 Room Air 05/13/17 16:53 98.1 89 20 139/81 97 Physical Exam Const: [] Moderate distress, appears in pain Head: Atraumatic Eyes: Normal Conjunctiva ENT: Normal External Ears, Nose and Mouth. Neck: Full range of motion..~ No meningismus. Resp: Clear to auscultation bilaterally Cardio: Regular rate and rhythm, no murmurs Abd: Soft, non tender, non distended. Normal bowel sounds Skin: No petechiae or rashes Back: No midline or flank tenderness Ext: No cyanosis, right right ankle edema with a 2 x 2 centimeter superficial lateral abrasion with no active bleeding, tenderness on any attempted motion of the foot, no tenderness of specific foot bones. Dorsalis pedis pulse intact with good capillary refill less than 1 second. Tender to palpation of any swollen area around ankle. Bimalleolar tenderness. Neur: Awake and alert oriented 3, no focal deficits Psych: Normal Mood and Affect Results 24 hrs Current Medications Medications (Trade) Dose Ordered Sig/Marcelina Route PRN Reason Start Time Stop Time Status Last Admin Dose Admin Ketamine HCl (Ketalar) 78 mg ONCE ONCE IV 05/13/17 23:00 05/13/17 23:01 DC 05/14/17 00:13 Propofol 80 mg 80 mg ONCE ONCE IV 05/13/17 23:00 05/13/17 23:01 DC 05/14/17 00:12 Sodium Chloride (NS) 1,000 ml @ 1,000 mls/hr Q1H STAT IV 05/13/17 23:10 05/13/17 23:14 DC Ondansetron HCl (Zofran Inj) 4 mg ONCE STAT IV 05/13/17 23:10 05/13/17 23:14 DC Diphtheria/ Tetanus/Acell Pertussis (Adacel) 0.5 ml ONCE ONCE IM* 05/14/17 01:00 12/16/17 01:03 DC 05/14/17 01:35 Morphine Sulfate (morphine) 4 mg ONCE STAT IV 05/14/17 01:28 05/14/17 01:29 DC 05/14/17 01:34 Oxycodone/ Acetaminophen (Endocet (10/ 325)) 1 tab ONCE ONCE PO 05/14/17 01:30 05/14/17 01:31 DC 05/14/17 01:33 Ketorolac Tromethamine (Toradol) 30 mg ONCE STAT IV 05/14/17 01:29 05/14/17 01:30 DC 05/14/17 01:49 Procedures/MDM Bimalleolar right ankle fracture secondary mechanical fall requiring procedural sedation and reduction. I did speak with Dr. Alejo prior to the reduction with no vascular compromise and no open fracture as the patient can be discharged to be seen as an outpatient. Patient was given morphine for pain control. He was given Percocet pill prior to discharge. I reduced the ankle with good satisfactory results. Patient is being discharged with family with crutches and a splint. Reviewed him follow-up with Dr. Alejo as well as a list of community clinics in case he is unable to afford orthopedic visit. He has only emergency [facility]. Told him that he may have to find a way to pay for specialist care as he will definitely need at the very least a cast placed instead of the splint. Right ankle x-ray interpretation, x-ray #1: Bimalleolar fracture with fractured distal fibula and tibia, medial displacement of the tibia on the ankle mortise. Right ankle x-ray interpretation, postreduction, x-ray #2: Interval reduction with improved alignment of the ankle mortise in decreased displacement of the fractures, satisfactory reduction. Fracture reduction note, right ankle bimalleolar fracture: Under moderate procedural sedation the nurse held the thigh steady while I applied significant traction with both hands with my thumb manipulating the tibia in order to slide it laterally. Postreduction x-ray was performed while I held traction after the reduction. There was satisfactory alignment the patient was splinted. He tolerated procedure well no complications. Good capillary refill and motor function. Vascularly intact Moderate procedural sedation note: With patient on oxygen, respiratory at bedside, entitled CO2 monitor, director of individual giving and patient was sedated using 1 mg/kg or 80 mg of ketamine followed by only 40 mg of propofol. ASA class II. Patient remained awake this provided adequate sedation for the procedure. Vital signs remained stable and unchanged. Patient then emerged alert and oriented 3 with no complications. ED splint application note: Stirrup splint was made out of fiberglass and fitted to the patient after sleeve was placed an Adarsh wrap placed over it during the reduction. Held traction while the splint hardened. Then I perform neurovascular assessment the patient's toes and he was neurovascularly intact with good motor function as well. Improved pain. Tolerated well with no complications. Departure Diagnosis: Primary Impression: Abrasion Additional Impression: Bimalleolar fracture of right ankle Condition: Stable Patient Instructions: Treating Ankle Fractures Referrals: [facility] YOU HAVE RECEIVED A MEDICAL SCREENING EXAM AND THE RESULTS INDICATE THAT YOU DO NOT HAVE A CONDITION THAT REQUIRES URGENT TREATMENT IN THE EMERGENCY DEPARTMENT. FURTHER EVALUATION AND TREATMENT OF YOUR CONDITION CAN WAIT UNTIL YOU ARE SEEN IN YOUR DOCTORS OFFICE WITHIN THE NEXT 1-2 DAYS. IT IS YOUR RESPONSIBILITY TO MAKE AN APPOINTMENT FOR FOLOW-UP CARE. IF YOU HAVE A PRIMARY DOCTOR --you should call your primary doctor and schedule an appointment IF YOU DO NOT HAVE A PRIMARY DOCTOR YOU CAN CALL OUR PHYSICIAN REFERRAL HOTLINE AT IF YOU CAN NOT AFFORD TO SEE A PHYSICIAN YOU CAN CHOSE FROM THE FOLLOWING [facility] [address] [facility]. [facility] [address] [facility] [address] [facility] [facility] [address] [facility]. [facility] [address] [facility]. [facility]. [address] Additional Instructions: Specialist:Usted tiene tisha condicin mdica que requiere que matthew a un ORTHOPEDIST dentro de los prximos 1-2 semanas.POR FAVOR,CON STONER SEGUIMIENTO DE PRIMARIA PHSICIAN refferal. SI USTED NO TIENE UN MDICO GENERAL Y / O USTED NO PUEDE PAGAR yasmeen a un mdico,los siguientes everett RECURSOS sido suministrado a usted. ES STONER RESPONSABILIDAD PARA SER VISTOS POR EL ESPECIALISTA: Llame a la oficina de Dr. Alejo. Si no pueden verle, llame el luke en stoner tarjeta de seguranza. RASHMI FRANZ DO May 14, 2017 02:24
== END 2017-05-14 02:14 | disposition home or self-care (01) ==
LOC: FTE 16:48 → E/R 05-14 02:14
DX: S82.841A Displaced bimalleolar fracture of right lower leg, initial encounter for closed fracture (principal); E11.9 Type 2 diabetes mellitus without complications; W18.39XA Other fall on same level, initial encounter; Y92.9 Unspecified place or not applicable; Z79.84 Long term (current) use of oral hypoglycemic drugs
CPT/HCPCS: 27810; 73600; 73610; 90471; 90715; 96374; 96375; J1885; J2270; Z7502; Z7610; J7030

== ENCOUNTER 2017-09-10 07:48 | Emergency (ER) | END 2017-09-10 10:12 | disposition home or self-care (01) ==

== ENCOUNTER 2018-11-21 15:24 | Emergency (ER) | payer MEDICAID ==
[~2018-11-21] VITALS: Ht 177.8 cm; Wt 75.0 kg
[~2018-11-21 15:24] MED LIST changes: +CEPH-443 PO; -CIPR500T4 PO; +FAMO-96 PO; +HYDR-4011 PO; -IBUP400T22 PO; +IBUP800T48 PO; +METF100010 PO; +NAPR-688 PO; +SULF1TAB31 PO; -TRAM50TA2 PO
[2018-11-21 15:36] VITALS: Ht 177.8 cm; Wt 75.0 kg
[2018-11-21] MEDS ORDERED: ONDANSETRON (ODT) 4 MG TAB ODT STA (16:54)
[2018-11-21] MEDS ORDERED: HYDROCODONE/APAP (5/325) TAB PO ONE (18:30)
[2018-11-21] MEDS ORDERED: HYDR-4011 PO (18:43)
[2018-11-21] MEDS ORDERED: ONDA4TAB14 PO (18:43)
[2018-11-21] MEDS ORDERED: IBUP-1542 PO (18:43)
[2018-11-21 18:55] VITALS: BP 125/68; PULSE 80; RESP 18
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
== END 2018-11-21 18:56 | disposition home or self-care (01) ==
LOC: FTE 15:24
DX: S16.1XXA Strain of muscle, fascia and tendon at neck level, initial encounter (principal); E11.9 Type 2 diabetes mellitus without complications; R51 Headache; W01.198A Fall on same level from slipping, tripping and stumbling with subsequent striking against other object, initial encounter; Y92.9 Unspecified place or not applicable; Z79.84 Long term (current) use of oral hypoglycemic drugs
CPT/HCPCS: 70450; 70486; 71045; 72125; Z7502; Z7610

== ENCOUNTER 2018-11-24 09:06 | Emergency (ER) | payer MEDICAID ==
[~2018-11-24] VITALS: Ht 172.7 cm; Wt 68.0 kg
[~2018-11-24 09:06] MED LIST changes: +IBUP-1542 PO; +ONDA4TAB14 PO
[2018-11-24 09:13] VITALS: BP 143/78; PULSE 64; RESP 16; Ht 172.7 cm; Wt 68.0 kg
--- NOTE | 2018-11-24 09:35 | ERD ---
ER Documentation Chief Complaint Chief Complaint pt is bib self with c/o dizziness, seen here for vertigo, to sleepy c meds HPI This patient is a pleasant 58-year-old male who was seen here 3 days ago after head injury. At that time he did have CT scans which were negative. He states his been taking the ibuprofen Zofran and [place] for pain however he states that the medications make him dizzy and continues to have headache and dizziness sin ce the head injury. No new head injury. No vomiting. He states the dizziness feels like the room is spinning and usually is worse when he goes from laying down to standing up. No chest pain palpitations or shortness of breath. He is requesting referral to neurology for follow-up. ROS All systems reviewed and are negative except as per history of present illness. Medications Home Meds Active Scripts Meclizine Hcl* (Meclizine Hcl*) 25 Mg Tablet, 25 MG PO Q8H PRN for DIZZINESS, #30 TAB Prov:JOVANY WILEY PA-C 11/24/18 Ibuprofen* (Motrin*) 600 Mg Tab, 600 MG PO Q6, #30 TAB Prov:AMBER VIZCAINO NP 11/21/18 Ondansetron (Ondansetron Odt) 4 Mg Tab.rapdis, 4 MG PO Q6H PRN for NAUSEA AND/OR VOMITING, #10 TAB Prov:AMBER VIZCAINO NP 11/21/18 Hydrocodone/Acetaminophen ([place] 5-325 Tablet) 1 Each Tablet, 1 TAB PO Q6H PRN for PAIN, #7 TAB Prov:AMBER VIZCAINO NP 11/21/18 Famotidine* (Pepcid*) 20 Mg Tablet, 40 MG PO DAILY for 30 Days, #30 TAB Prov:ROMEO PRATER 09/10/17 Ibuprofen* (Motrin*) 800 Mg Tab, 800 MG PO Q6H PRN for PAIN AND OR ELEVATED TEMP, #30 TAB Prov:ROMEO PRATER F 09/10/17 Cephalexin* (Keflex*) 500 Mg Capsule, 500 MG PO TID for 7 Days, CAP Prov:RASHMI FRANZ DO 05/14/17 Sulfamethoxazole/Trimethoprim* (Bactrim Ds* Tablet) 1 Each Tablet, 1 TAB PO BID, #20 TAB Prov:RASHMI FRANZ DO 05/14/17 Naproxen* (Naproxen*) 500 Mg Tablet, 500 MG PO BID PRN for PAIN, #14 TAB Prov:RASHMI FRANZ DO 05/14/17 Hydrocodone/Acetaminophen ([place] 5-325 Tablet) 1 Each Tablet, 1 EACH PO Q6, #20 TAB Prov:RASHMI FRANZ DO 05/14/17 Reported Medications Metformin Hcl* (Metformin Hcl*) 1,000 Mg Tablet, 1000 MG PO WITH BREAKFAST DINN E, #60 TAB 05/13/17 Allergies Allergies: Coded Allergies: No Known Allergy (Unverified , 05/13/17) PMhx/Soc History of Surgery: No Anesthesia Reaction: No Hx Neurological Disorder: No Hx Respiratory Disorders: No Hx Cardiac Disorders: No Hx Psychiatric Problems: No Hx Miscellaneous Medical Probl: Yes (DM) Hx Alcohol Use: No Hx Substance Use: No Hx Tobacco Use: No FmHx Family History: diabetes Physical Exam Vitals Vital Signs Date Temp Pulse Resp B/P (MAP) Pulse Ox O2 O2 Flow FiO2 Time Delivery Rate 11/24/18 98.3 64 16 143/78 98 09:13 (99) Physical Exam INITIAL VITAL SIGNS: Reviewed by me GENERAL: Awake, alert and oriented x 4, well appearing, nontoxic, speaking in full sentences. No acute distress HEAD: Atraumatic NECK: Supple. No masses. Full range of motion. No meningismus. No midline tenderness. EYES: EOMI. PERRL. EAR: No tenderness over the mastoids bilaterally. No exudates in the canals. TMs nonerythematous. RESPIRATORY: Clear to auscultation bilaterally. Symmetric chest wall rise. No wheezing or rales. No accessory muscle use. CV: Regular rate and rhythm. No murmurs, rubs, or gallops. Neuro: M/S: Alert and oriented Face: EOMI, face and pharynx with normal sensation and function Motor: Normal strength throughout Sensation: Normal sensation throughout Speech: Normal Cerebel: Normal coordination Normal gait Normal finger to nose Procedures/MDM Patient has headache and dizziness after head injury that occurred 3 days ago. He was seen here and had CT scans which were negative. He remains neurologically intact. I reviewed the notes from his previous visit. I explained to him he likely has postconcussive syndrome. Patient was given prescription for meclizine. He also requested referral to neurology. I explained to him that I can give him some names of neurologist however he should follow-up with his primary care doctor for outpatient referral to neurology in case the names of providers do not accept his insurance. He has no chest pain palpitations or shortness of breath. I did do an Accu-Chek which was 285, no evidence of dka. Low suspicion for delayed intracranial bleed and therefore no repeat imaging done at this time. Patient counseled regarding my diagnostic impression and care plan. Prior to discharge all questions answered. Pt agrees with treatment plan and understands strict return precautions. Pt is instructed to follow up with primary care provider within 24-48 hours. Precautionary instructions provided including instructions to return to the ER if not improving or for any worsening or changing symptoms or concerns. Departure Diagnosis: Primary Impression: Post concussion syndrome Condition: Stable JOVANY WILEY PA-C Nov 24, 2018 09:35
[2018-11-24] MEDS ORDERED: MECL-77 PO (09:37)
== END 2018-11-24 10:14 | disposition home or self-care (01) ==
LOC: FTE 09:06
DX: R42 Dizziness and giddiness (principal); F07.81 Postconcussional syndrome; E11.9 Type 2 diabetes mellitus without complications
CPT/HCPCS: 82962; Z7502; 99282